=== PATIENT | male | born 1985 | race Two or more races ===

== ENCOUNTER 2021-12-22 23:02 | Emergency (ER) | payer MEDICAID ==
[~2021-12-22] VITALS: Ht 177.8 cm; Wt 80.7 kg
[2021-12-22 23:15] VITALS: BP 131/71
--- NOTE | 2021-12-22 23:15 | NUR ---
TO BED AMBULATORY
--- NOTE | 2021-12-22 23:30 | NUR ---
36 YO M BIB SELF WITH C/C OF 10/10 TESTICULAR AND ABD PAIN XWEDNESDAY S/P WORKING ON CAR AND PULLED TOO HARD THEN FELT A PULL IN PELVIS. PT HAS TESTICULAR SWELLING.+N/V. PT STATES HE WAS ADMITTED AT [place], PT LEFT AMA, STATES "THEY WERE GIVING ME THE RUN AROUND ABOUT MY DIET I HADNT EATEN AND I WAS WAITING TOO LONG FOR THE UROLOGIST. HX:HTN NKA
--- NOTE | 2021-12-22 23:50 | NUR ---
DR. SPENCER AT BEDSIDE.
[2021-12-23] MEDS ORDERED: KETOROLAC 30 MG/ML VIAL IVP ONE (00:05)
[2021-12-23] MEDS ORDERED: NACL 0.9% 1,000 ML IV ONE (00:05)
[2021-12-23 00:24] LABS: HEMATOCRIT 38.8 % (36-52); HEMOGLOBIN 13.3 g/dL (12.0-18.0); MEAN CORPUSCULAR HEMOGLOBIN 29 pg (27-31); MEAN CORPUSCULAR HGB CONC 34 g/dL (33-37); MEAN CORPUSCULAR VOLUME 84.9 fL (80-94); PLATELET COUNT (AUTO) 245 K/uL (140-450); RED BLOOD CELL COUNT(AUTO) 4.57 MIL/uL (4.20-6.10); RED CELL DISTRIBUTION WIDTH 13.4 % (11.6-13.7)
--- NOTE | 2021-12-23 00:25 | NUR ---
[facility] AT BEDSIDE FOR CULTURES.
[2021-12-23] MEDS ORDERED: cefTRIAXone 1,000 MG VIAL ONE (00:43)
[2021-12-23 00:44] LABS: ALBUMIN 2.5 g/dL (3.4-5.0); ANION GAP 13.3 (8-16); CREATININE 1.1 mg/dL (0.6-1.3); POTASSIUM 3.3 mmol/L (3.5-5.1); TOTAL BILIRUBIN 0.3 mg/dL (0.0-1.0)
[2021-12-23 00:45] LABS: LYMPHOCYTES % (MANUAL) 5 % (20-46); MONOCYTES % (MANUAL) 7 % (5-12)
[2021-12-23 02:20] LABS: APPEARANCE,URINE CLEAR (CLEAR); BILIRUBIN,URINE NEGATIVE (NEGATIVE); BLOOD, URINE 1+ (NEGATIVE); COLOR,URINE YELLOW (YELLOW); LEUKOCYTE ESTERASE ,URINE 1+ (NEGATIVE); NITRITE, URINE NEGATIVE (NEGATIVE); UGLUCOSE NEGATIVE (NEGATIVE)
--- NOTE | 2021-12-23 02:30 | NUR ---
PT APPEARS TO BE RESTING. EQUAL RISE AND FALL OF CHEST WALL. VSS. PT IN STABLE CONDITION. ALL NEEDS MET AT THIS TIME.
[2021-12-23 02:46] LABS: RBC,URINE 0-5 /HPF (0-5)
[2021-12-23 03:00] LABS: BARBITURATE, URINE NEGATIVE ng/ml (NEG <=200); BENZODIAZEPINE, URINE NEGATIVE ng/mL (NEG <=200); CANNABINOID, URINE POSITIVE ng/mL (NEG <=50); COCAINE, URINE NEGATIVE ng/mL (NEG <=300); OPIATE, URINE POSITIVE ng/mL (NEG <=2000); PHENCYCLIDINE SCREEN,URINE NEGATIVE ng/mL (NEG <=25)
[2021-12-23] MEDS ORDERED: ACET-8386 PO (03:27)
[2021-12-23] MEDS ORDERED: DOXY-690 PO (03:27)
[2021-12-23] MEDS ORDERED: NAPR-54 PO (03:27)
[2021-12-23 03:41] VITALS: BP 121/53
--- NOTE | 2021-12-23 03:41 | NUR ---
Patient discharged with v/s stable. Written and verbal after care instructions given and explained. Patient alert, oriented and verbalized understanding of instructions. Ambulatory with steady gait. All questions addressed prior to discharge. ID band removed. Patient advised to follow up with PMD. Rx of HYDROCODONE-ACETAMINOPHEN, VIBRAMYCIN, AND NAPROSYN given. Patient educated on indication of medication including possible reaction and side effects. Opportunity to ask questions provided and answered.
== END 2021-12-23 03:41 | disposition home or self-care (01) ==
LOC: MED 23:02
DX: N45.1 Epididymitis (principal); Z20.822 Contact with and (suspected) exposure to COVID-19; Z79.899 Other long term (current) drug therapy
CPT/HCPCS: 76870; 80053; 80305; 81001; 83605; 85025; 87040; 87086; 87426; 96361; 96365; 96375; 99284; J0696; J1885; J7030; Q0092

== ENCOUNTER 2022-06-12 08:54 | Emergency (ER) | payer SELFPAY ==
[~2022-06-12] VITALS: Ht 154.9 cm; Wt 86.2 kg
[~2022-06-12 08:54] MED LIST: ACET-8386 PO; DOXY-690 PO; NAPR-54 PO
[2022-06-12 09:09] VITALS: BP 158/85
--- NOTE | 2022-06-12 09:50 | NUR ---
Dr. Berman evaluating patient at bedside.
[2022-06-12] MEDS ORDERED: NAPR-54 PO (09:59)
[2022-06-12] MEDS ORDERED: PENI500T20 PO (09:59)
--- NOTE | 2022-06-12 10:05 | NUR ---
Patient discharged with v/s stable. Written and verbal after care instructions given. Patient alert, oriented and verbalized understanding of instructions. Ambulatory with steady gait. All questions addressed prior to discharge. ID band removed. Patient advised to follow up with PMD. Rx of Naproxen and Penicillin V given. Opportunity to ask questions provided and answered.
--- NOTE | 2022-06-12 10:06 | NUR ---
Chart checked and completed. The patient's care was reviewed and supervised by Susanna Pineda RN.
== END 2022-06-12 10:05 | disposition home or self-care (01) ==
LOC: MED 08:54
DX: K04.7 Periapical abscess without sinus (principal); Z71.6 Tobacco abuse counseling; I10 Essential (primary) hypertension; F17.210 Nicotine dependence, cigarettes, uncomplicated; Z79.1 Long term (current) use of non-steroidal anti-inflammatories (NSAID); Z79.2 Long term (current) use of antibiotics; Z79.891 Long term (current) use of opiate analgesic
CPT/HCPCS: 99283

== ENCOUNTER 2023-05-06 23:40 | Emergency (ER) | payer SELFPAY ==
[~2023-05-06] VITALS: Ht 177.8 cm; Wt 78.9 kg
[~2023-05-06 23:40] MED LIST changes: -ACET-8386 PO; +ACET-8905 PO; +PENI500T20 PO
[2023-05-06 23:57] VITALS: BP 65/97; PULSE 65; RESP 16; TEMP 97.8; O2SAT 98
[2023-05-07] MEDS ORDERED: SUMAtriptan succinate 50 MG TAB PO ONE (01:15)
[2023-05-07] MEDS ORDERED: KETOROLAC 60 MG/2 ML VIAL IM ONE (01:15)
[2023-05-07] MEDS ORDERED: METOCLOPRAMIDE 10 MG TAB PO ONE (01:15)
[2023-05-07] MEDS ORDERED: ACETAMINOPHEN EXTRA STRENGTH 500 MG TAB PO ONE (01:15)
[2023-05-07] MEDS ORDERED: ACET-10509 PO (01:26)
[2023-05-07] MEDS ORDERED: IMI50 PO (01:26)
[2023-05-07] MEDS ORDERED: IBUP-2213 PO (01:26)
[2023-05-07] MEDS ORDERED: METO-486 PO (01:26)
[2023-05-07 01:52] VITALS: BP 65/97; PULSE 65; RESP 16; TEMP 97.8; O2SAT 98
== END 2023-05-07 02:05 | disposition left against medical advice (07) ==
LOC: MED 23:40
DX: G43.909 Migraine, unspecified, not intractable, without status migrainosus (principal); K06.9 Disorder of gingiva and edentulous alveolar ridge, unspecified; K02.9 Dental caries, unspecified; R04.2 Hemoptysis; K05.6 Periodontal disease, unspecified; I10 Essential (primary) hypertension; Z79.899 Other long term (current) drug therapy
CPT/HCPCS: 99283; J1885; J8597